=== PATIENT | male | born 1945 | race Caucasian/White ===

== ENCOUNTER 2018-11-01 02:28 | Outpatient (CLI) | payer MEDICARE, BC, SELFPAY ==
[2018-11-05 19:53] LABS: Testosterone, Bioavailable 42 ng/dL (40-168); Testosterone, Free 6.43 ng/dL (3.28-12.2); Testosterone, Total 378 ng/dL (240-950)
== END 2018-11-01 02:48 ==
PROVIDERS: PCP Family Medicine; Visit Provider Family Medicine
DX: R79.89 Other specified abnormal findings of blood chemistry (principal)
CPT/HCPCS: 36415; 84402; 84403; 84410

== ENCOUNTER 2019-09-08 01:20 | Outpatient (CLI) | payer MEDICARE, BC, SELFPAY ==
--- NOTE | 2019-09-08 07:45 | DI.CTLCSR_ITS ---
EXAM: CT CHEST LUNG CANCER SCREEN CLINICAL HISTORY: SCREENING FOR LUNG CA, FORMER SMOKER, Z87.891 TECHNIQUE: COMPARISON: CT CHEST - LUNG CANCER SCREENING from 08/24/2017 CT CHEST - LUNG CANCER SCREENING from 08/24/2017 FINDINGS: CT examination of the chest was performed without contrast administration utilizing low-dose lung can cer screening protocol. Images obtained through the upper show unremarkable appearance visualized portions kidneys adrenals p ancreas gallbladder and spleen. Small low-attenuation right hepatic lobe lesion appears unchanged fr om prior scan August 24, 2017. There is no evidence of mediastinal or hilar adenopathy. Tracheobronchial tree appears intact. Lung s are predominantly clear. A 5 millimeter right middle lobe laterally located pleural-based nodule s een on prior scan is unchanged on today's examination. A tiny calcified nodule is seen in the left u pper lobe. Tiny pleural-based nodule in medial aspect of the right lung apex is unchanged. No new n odule identified. No pleural effusion. IMPRESSION: Stable 5 millimeter right middle lobe pulmonary nodule. BI-RADS Cat 2 - Benign Findings Continue annual screening with LD CT in 12 months.
== END 2019-09-08 01:40 ==
PROVIDERS: PCP Family Medicine; Visit Provider Family Medicine
DX: Z12.2 Encounter for screening for malignant neoplasm of respiratory organs; Z87.891 Personal history of nicotine dependence; R91.1 Solitary pulmonary nodule
CPT/HCPCS: G0297

== ENCOUNTER 2019-09-08 01:56 | Outpatient (CLI) | payer MEDICARE, BC, SELFPAY ==
[2019-09-08 12:48] LABS: HCT 45.6 % (40.0-50.0); HGB 14.7 g/dL (13.5-17.5); MCH 30.2 pg (27.0-33.0); MCHC 32.2 % (32.0-36.0); MCV 93.6 fL (80-95); MPV 9.2 fL (8.0-11.0); Platelet Count 277 10^3/uL (130-400); RBC 4.87 10^6/uL (4.36-5.78); RDW 12.1 % (11.8-14.1); RDW-SD 42.3 fL; WBC 8.56 10^3/uL (4.4-10.8)
[2019-09-08 13:48] LABS: ALT 30 U/L (16-63); AST 19 U/L (15-37); Albumin 3.7 g/dL (3.4-5.0); Alkaline Phosphatase 61 U/L (46-116); Anion Gap 4.3 mmol/L (3-11); BUN 18 mg/dL (7-18); Bilirubin, Total 0.4 mg/dL (0.2-1.0); CO2 29.7 mmol/L (21.0-32.0); CREATININE 1.08 mg/dL (0.70-1.30); Calcium 8.9 mg/dL (8.5-10.1); Calculated LDL 103 mg/dL (<100); Chloride 104 mmol/L (98-107); Cholesterol 194 mg/dL (<200); Glucose 85 mg/dL (74-106); HDL Cholesterol 68 mg/dL (40-60); Potassium 4.3 mmol/L (3.5-5.1); Sodium 138 mmol/L (136-145); TSH (W/Ref FT4) 1.14 uIU/mL (0.36-3.74); Total Protein 6.4 g/dL (6.4-8.2); Triglyceride 118 mg/dL (<150)
[2019-09-09 08:53] LABS: PSA, Diagnostic 0.6 ng/mL (0.0-6.5)
== END 2019-09-08 02:16 ==
PROVIDERS: PCP Family Medicine; Visit Provider Family Medicine
DX: E78.00 Pure hypercholesterolemia, unspecified (principal); L74.9 Eccrine sweat disorder, unspecified; N40.0 Benign prostatic hyperplasia without lower urinary tract symptoms; Z12.2 Encounter for screening for malignant neoplasm of respiratory organs; Z87.891 Personal history of nicotine dependence; R91.1 Solitary pulmonary nodule
CPT/HCPCS: 36415; 80053; 80061; 85027; G0297; 84153; 84443

== ENCOUNTER 2020-01-26 03:04 | Outpatient (CLI) | payer MEDICARE, BC, SELFPAY ==
[2020-01-27 21:50] LABS: COVID-19 RT-PCR UVMMC Result Negative (Negative)
== END 2020-01-26 03:24 ==
PROVIDERS: PCP Family Medicine; Visit Provider Family Medicine
DX: Z20.828 Contact with and (suspected) exposure to other viral communicable diseases (principal)
CPT/HCPCS: U0003

== ENCOUNTER 2020-09-09 01:42 | Outpatient (CLI) | payer MEDICARE, BC, SELFPAY ==
--- NOTE | 2020-09-09 07:30 | DI.CTLCSR_ITS ---
Exam(s) CT CHEST LUNG CANCER SCREEN EXAM: CT CHEST LUNG CANCER SCREEN CLINICAL HISTORY: Screening for lung cancer,FORMER SMOKER, Z87.891. TECHNIQUE: Imaging Protocol: Low Dose Technique CONTRAST MATERIAL: None COMPARISON: CT CHEST - LUNG CANCER SCREENING from 08/24/2017 CT CHEST - LUNG CANCER SCREENING from 08/24/[address] CHEST LUNG CANCER SCREEN from 09/08/2019 FINDINGS: CHEST: LUNGS: There is continued stable appearance of the 5 x 3 millimeter pleural based noncalcified nodula r density in the lateral aspect of the right middle lobe.. There are no new significant nodules evid ent in the right lung. Mild scarring in the lateral basal segment of the left lower lobe is unchange d. A small 3 millimeter nodule located 5 millimeters in from the pleura in the superior segment of t he left lower lobe is unchanged from August 2017. There are no new nodules in either lung field and no pleural effusions. No new findings in the trachea and mainstem bronchi. MEDIASTINUM: There is no obvious hilar nor mediastinal adenopathy. CARDIAC: Heart size is normal. There is no pericardial effusion.Caliber of the thoracic aorta is wit hin normal limits. OTHER: OSSEOUS: No significant osseous lesions.. IMPRESSION: 1. Continued stable appearance of the right middle lobe and left lower lobe nodules which remain stab le, unchanged from at least August 2017. No new intrathoracic findings. 3. Lung RADS Cat 2 - Benign Appearance / Behavior: Nodules with a very low likelihood of becoming a c linically active cancer due to size or lack of growth Lung-RADS 1.0 CATEGORIES: Category 0 - Prior chest CT exam(s) being located for comparison. Category 1 - Annual screening in 12 months. No nodules or definitely benign nodules. Category 2 - Annual screening in 12 months. Benign appearance. Nodules with low likelihood of becomin g active cancer. Category 3 - 6-month follow-up. Probably benign. Short-term follow-up suggested. Nodules with low lik elihood of becoming active cancer. Category 4A - 3-month follow-up and CT/PET if >8 mm in size. Suspicious finding. Findings which requi re additional testing. Category 4B - Findings which require additional testing and tissue sampling. Modifier S- Potentially clinically significant findings (non lung cancer) RADIATION DOSE DELIVERED: 80.43mGy.cm Total DLP CTDIvol DATA REPOSITORY: All CT scans at this facility are submitted to the National Radiology Data Registry (NRDR) Dose Index Registry (DIR) with the [employer] (A[employer]). RADIATION OPTIMIZATION: All CT scans at this facility use at least one of these dose optimization te chniques: automated exposure control; mA and/or kV adjustment per patient size (includes targeted exa ms where dose is matched to clinical indication); or iterative reconstruction.
== END 2020-09-09 02:02 ==
PROVIDERS: PCP Family Medicine; Visit Provider Family Medicine
DX: Z12.2 Encounter for screening for malignant neoplasm of respiratory organs (principal); R91.8 Other nonspecific abnormal finding of lung field; Z87.891 Personal history of nicotine dependence
CPT/HCPCS: 71271

== ENCOUNTER 2022-10-30 12:20 | Outpatient (CLI) | payer MEDICARE, BC, SELFPAY ==
[2022-10-30 12:05] LABS: Hemoglobin A1C 5.9 % (<5.7)
[2022-10-30 13:00] LABS: ALT 30 U/L (16-63); AST 22 U/L (15-37); Albumin 3.6 g/dL (3.4-5.0); Alkaline Phosphatase 80 U/L (46-116); Anion Gap 8.5 mmol/L (3-11); BUN 21 mg/dL (7-18); Bilirubin, Total 0.4 mg/dL (0.2-1.0); CO2 25.5 mmol/L (21.0-32.0); CREATININE 1.2 mg/dL (0.70-1.30); Calcium 9.3 mg/dL (8.5-10.1); Chloride 104 mmol/L (98-107); Estimated GFR 62.29 (mL/min/1.73m2); Glucose 122 mg/dL (74-106); Potassium 4.5 mmol/L (3.5-5.1); Sodium 138 mmol/L (136-145); Total Protein 6.9 g/dL (6.4-8.2)
[2022-10-30 22:26] LABS: PSA, Diagnostic 0.7 ng/mL (<=6.5)
== END 2022-10-30 12:21 | disposition home or self-care (01) ==
LOC: LBO 12:21
PROVIDERS: PCP Family Medicine; Visit Provider Family Medicine
DX: I10 Essential (primary) hypertension (principal); E11.9 Type 2 diabetes mellitus without complications; N40.0 Benign prostatic hyperplasia without lower urinary tract symptoms
CPT/HCPCS: 36415; 80053; 83036; 84153

== ENCOUNTER → 2023-04-04 00:30 | Outpatient (CLI) | payer MEDICARE, BC, SELFPAY ==
--- NOTE | 2023-04-04 13:10 | DI.RAD_ITS ---
Exam(s) XR CHEST 2V PA LATERAL EXAM: XR CHEST 2V PA LATERAL CLINICAL HISTORY: cough 3 months,R05.9 TECHNIQUE: 2D digital imaging was performed. COMPARISON: CT CT CHEST LUNG CANCER SCREEN from 09/09/2020 FINDINGS: HEART: Normal size. Aorta: Not dilated. PULMONARY VASCULATURE: Normal. LUNGS: Clear. PLEURAL SPACE: No pleural effusion or pneumothorax. BONE:Old right rib fractures. Soft tissues: Unremarkable. IMPRESSION: No acute abnormality. DATA REPOSITORY: RADIATION DOSE DELIVERED:
== END ==
PROVIDERS: PCP Family Medicine; Visit Provider Family Medicine
DX: R05.9 Cough, unspecified (principal)
CPT/HCPCS: 71046

== ENCOUNTER 2023-12-05 00:38 | Outpatient (CLI) | payer MEDICARE, BC, SELFPAY ==
--- NOTE | 2023-12-05 06:35 | DI.US_ITS ---
Exam(s) US AAA SCREENING EXAM: US AAA SCREENING CLINICAL HISTORY: H/O smoking,Z72.0 COMPARISON: CT CT CHEST LUNG CANCER SCREEN from 09/09/2020 CR XR CHEST 2V PA LATERAL from 04/04/2023 FINDINGS: Abdominal Aorta: Proximal: 2.9 cm Mid: 2.4 cm Distal: 1.8 x 2.1 cm [place]: Right: 1.1 x 1.6 cm Left: 1.3 x 1.6 cm IMPRESSION: No evidence of abdominal aortic aneurysm. DATA REPOSITORY:
--- NOTE | 2023-12-05 08:21 | DI.RAD_ITS ---
Exam(s) XR SHOULDER LT COMPLETE 2+V EXAM: XR SHOULDER LT COMPLETE 2+V CLINICAL HISTORY: shoulder pain,M25.519. TECHNIQUE: 2D digital imaging was performed. Five views. COMPARISON: CR XR SHOULDER RT COMPLETE 2+V from 12/05/2023 FINDINGS: BONES: No acute fracture is present. No bony destructive lesion is seen. JOINTS: No dislocation present. Mild spurring at AC joint and undersurface of acromion. Glenohumera l joint space is maintained. Mild spurring at the glenoid. SOFT TISSUE: Normal. IMPRESSION: Mild degenerative changes. DATA REPOSITORY: RADIATION DOSE DELIVERED:
--- NOTE | 2023-12-05 08:21 | DI.RAD_ITS ---
Exam(s) XR SHOULDER RT COMPLETE 2+V EXAM: XR SHOULDER RT COMPLETE 2+V CLINICAL HISTORY: shoulder pain,M25.519. TECHNIQUE: 2D digital imaging was performed. Five views. COMPARISON: No exams were available for comparison FINDINGS: BONES: No acute fracture is present. No bony destructive lesion is seen. Mild spurring at undersurfa ce of acromion. JOINTS: No dislocation present. Mild spurring at AC joint and glenoid. Glenohumeral joint space is maintained. SOFT TISSUE: Normal. IMPRESSION: Mild degenerative changes. DATA REPOSITORY: RADIATION DOSE DELIVERED:
== END 2023-12-05 00:58 ==
PROVIDERS: PCP Family Medicine; Visit Provider Family Medicine
DX: M25.512 Pain in left shoulder (principal); Z72.0 Tobacco use; Z13.6 Encounter for screening for cardiovascular disorders; M25.511 Pain in right shoulder
CPT/HCPCS: 76706; 73030

== ENCOUNTER 2023-12-05 10:20 | Outpatient (CLI) | payer MEDICARE, BC, SELFPAY ==
[2023-12-05 09:06] LABS: ALT 29 U/L (16-63); AST 21 U/L (15-37); Albumin 3.6 g/dL (3.4-5.0); Alkaline Phosphatase 74 U/L (46-116); Anion Gap 6.7 mmol/L (3-11); BUN 29 mg/dL (7-18); Bilirubin, Total 0.43 mg/dL (0.2-1.0); CO2 28.3 mmol/L (21.0-32.0); CREATININE 0.9 mg/dL (0.70-1.30); Calcium 8.9 mg/dL (8.5-10.1); Calculated LDL 98 mg/dL (<100); Chloride 108 mmol/L (98-107); Cholesterol 191 mg/dL (<200); Estimated GFR 87.42 (mL/min/1.73m2); Glucose 114 mg/dL (74-106); HDL Cholesterol 85 mg/dL (40-60); Potassium 5.1 mmol/L (3.5-5.1); Sodium 143 mmol/L (136-145); Total Protein 6.8 g/dL (6.4-8.2); Triglyceride 41 mg/dL (<150)
[2023-12-06 15:43] LABS: Hepatitis C Ab w Rflx HCV PCR Negative (Negative)
== END 2023-12-05 10:21 | disposition home or self-care (01) ==
LOC: LBO 10:23
PROVIDERS: PCP Family Medicine; Visit Provider Family Medicine
DX: I10 Essential (primary) hypertension (principal); Z11.59 Encounter for screening for other viral diseases
CPT/HCPCS: 36415; 76706; 80053; 80061; 86803; 73030

== ENCOUNTER 2024-01-11 00:30 | Outpatient (CLI) | payer MEDICARE, BC, SELFPAY ==
--- NOTE | 2024-01-11 07:15 | DI.MRI_ITS ---
Exam(s) MR UPPER JOINT RT WO EXAM: MR UPPER JOINT RT WO CLINICAL HISTORY: right shoulder pain,SUPRASPINATUS TENDON TEAR,M25.519,M75.100. TECHNIQUE: Multiplanar multisequence MRI was performed. COMPARISON: CR XR SHOULDER RT COMPLETE 2+V from 12/05/2023 FINDINGS: The examination is limited due to patient motion artifact. BONES: There is no fracture or contusion pattern. JOINTS: Moderate degenerative changes are seen at the acromioclavicular joint. There also degenerati ve changes seen at the glenohumeral joint. TENDONS: Supraspinatus: There is a full-thickness tear of the supraspinatus tendon anteriorly at its insertion site. There also is underlying tendinosis. Infraspinatus: There is tendinosis of the infraspinatus tendon. Subscapularis: There is tendinosis of the subscapularis tendon. There appears to be a full-thickness tear of the subscapularis tendon at its insertion site. Teres Minor: Unremarkable. Biceps and [place]: There is medial dislocation of the biceps tendon. MUSCLES: There is mild atrophy of the subscapularis muscle. GLENOID LABRUM: The glenoid labrum is difficult to evaluate due to the patient motion artifact. No g ross abnormalities identified at this time. SOFT TISSUES: Unremarkable. LIGAMENTS: There appears to be a tear of the transverse humeral ligament. OTHER: There is fluid seen in the subacromial subdeltoid bursa. IMPRESSION: 1. Suboptimal examination limited by patient motion artifact. 2. Full-thickness tear of the supraspinatus tendon. 3. Partial tear of the subscapularis tendon and the transverse humeral ligament resulting in medial d isplacement of the biceps tendon. 4. Infraspinatus tendinosis. 5. Mild atrophy of the subscapularis muscle. 6. Degenerative changes seen particularly at the acromioclavicular joint. DATA REPOSITORY:
== END 2024-01-11 00:50 ==
LOC: DI 00:30
PROVIDERS: PCP Family Medicine; Visit Provider Family Medicine
DX: M75.121 Complete rotator cuff tear or rupture of right shoulder, not specified as traumatic (principal)
CPT/HCPCS: 73221

== ENCOUNTER 2024-01-23 04:38 | Outpatient (CLI) | payer MEDICARE, BC, SELFPAY ==
[2024-01-23 12:25] LABS: Hemoglobin A1C 5.8 % (<5.7)
== END 2024-01-23 04:39 | disposition home or self-care (01) ==
LOC: LBO 04:38
PROVIDERS: PCP Family Medicine; Visit Provider Family Medicine
DX: E11.9 Type 2 diabetes mellitus without complications (principal)
CPT/HCPCS: 36415; 83036

== ENCOUNTER 2024-01-28 01:30 | Outpatient (CLI) | payer MEDICARE, BC, SELFPAY ==
--- NOTE | 2024-01-28 06:00 | DI.MRI_ITS ---
Exam(s) MR UPPER JOINT LT WO EXAM: MR UPPER JOINT LT WO CLINICAL HISTORY: left shoulder pain,supraspinatus tear,m25.519,m75.100. TECHNIQUE: Multiplanar multisequence MRI was performed. COMPARISON: Plain films 05 December 2023 FINDINGS: BONES: There is no fracture or contusion pattern. Degenerative cyst in the anterior humeral head. JOINTS:The acromioclavicular joint shows moderate spurring. The glenohumeral joint is unremarkable. TENDONS: Supraspinatus: Anterior thinning. Edema. Findings consistent with partial tear. Infraspinatus: Mild edema. Subscapularis: Unremarkable. Teres Minor: Unremarkable. Biceps and [place]: Unremarkable. MUSCLES: Unremarkable. GLENOID LABRUM: Unremarkable on this noncontrast examination. SOFT TISSUES: Unremarkable. BURSAE: Subacromial and subdeltoid bursae are shows a tiny amount of fluid. Small amount of fluid i n subcoracoid bursa.. IMPRESSION: Tendinosis and partial tear of anterior supraspinatus tendon. Infraspinatus tendinosis. DATA REPOSITORY:
== END 2024-01-28 01:50 ==
LOC: DI 01:31
PROVIDERS: PCP Family Medicine; Visit Provider Family Medicine
DX: M25.511 Pain in right shoulder (principal); M75.101 Unspecified rotator cuff tear or rupture of right shoulder, not specified as traumatic
CPT/HCPCS: 73221

== ENCOUNTER → 2024-04-15 08:22 | Outpatient (BNVA) | payer MEDICARE, BC, SELFPAY | PROVIDERS: PCP Family Medicine; Referring Provider Family Medicine; Visit Provider Student in an Organized Health Care Education/Training Program | DX: M19.011 Primary osteoarthritis, right shoulder (principal); M75.101 Unspecified rotator cuff tear or rupture of right shoulder, not specified as traumatic | CPT/HCPCS: 99203 ==

== ENCOUNTER 2024-12-16 10:00 | Outpatient (CLI) | payer MEDICARE, BC, SELFPAY ==
[2024-12-16 14:11] LABS: Vitamin B12 298 pg/mL (211-911)
[2024-12-16 15:24] LABS: Hemoglobin A1C 5.7 % (<5.7)
[2024-12-16 22:33] LABS: PSA, Diagnostic 0.5 ng/mL (<=6.5)
== END 2024-12-16 10:01 | disposition home or self-care (01) ==
LOC: LOS 10:00
PROVIDERS: PCP Family Medicine; Visit Provider Family Medicine
DX: N40.0 Benign prostatic hyperplasia without lower urinary tract symptoms (principal); K21.9 Gastro-esophageal reflux disease without esophagitis; E11.9 Type 2 diabetes mellitus without complications
CPT/HCPCS: 36415; 82607; 83036; 84153